=== PATIENT | male | born 1945 | race Caucasian/White ===

== ENCOUNTER → 2017-03-15 | Day surgery (SDC) | payer OTHER ==
[~2017-03-15] VITALS: Ht 182.9 cm; Wt 88.5 kg
[~2017-03-15] MED LIST: ASPIRIN EC81 M1 PO; ATENOLOL25 MG PO; ATORVASTATIN CA40 M1 PO; ATORVASTATIN CA40 MG PO; FUROSEMIDE20 MG PO; LISINOPRIL10 M1 PO; LIVALO4 MG PO; NEXIUM40 M1 PO; PERCOCET 325 MG1 TA3 PO
--- NOTE | 2017-03-15 18:06 | Cons- Urology ---
General Information and HPI Consulting Request Date of Consult: 03/15/17 Requested By: ANNI ZHAO,HAYLIE Leo Reason for Consult: Post op urinary retention Source of Information: patient, old records Exam Limitations: no limitations History of Present Illness: This patient underwent hernia repair today. He has been unable to void since the procedure and feels that his bladder is full. He denies any pre op voiding issues other than an episode of urinary retention after a previous surgical procedure Allergies/Medications Allergies: Coded Allergies: MDX - PCN (penicillin) (PCN (PENICILLIN)) (SWELLING 02/02/14) Home Med List: Aspirin (Ecotrin*) 81 MG TABLET.DR 1 TAB PO DAILY PROPHO (Reported) Atenolol 25 MG TABLET 1 TAB PO DAILY BP (Reported) Atorvastatin Calcium (Lipitor) 40 MG TABLET 1 TAB PO QPM CHOLESTEROL ( Reported) Atorvastatin Calcium 40 MG TABLET 1 TAB PO DAILY CHOLESTEROL (Reported) Esomeprazole (Nexium) 40 MG CAPSULE.DR 1 TAB PO 3X PER WEEK GERD (Reported) Lisinopril 10 MG TABLET 1 TAB PO DAILY HTN (Reported) Past History Medical History Neurological: NONE EENT: NONE Cardiovascular: hypertension, hyperlipidemia Respiratory: NONE Gastrointestinal: diverticulitis, HERNIA REPAIR AND MESH PLACEMENT. SECTION SIGMOID COLON REM Hepatic: cirrhosis Renal: NONE Musculoskeletal: R HIP REPAIR. Endocrine: NONE Blood Disorders: NONE Cancer(s): NONE Family History Relations & Conditions If Any: Relation not specified for: FH: breast cancer FH: lung cancer Psychosocial History Services at Home: None Exam & Diagnostic Data Vital Signs and I&O Intake & Output 03/15 1600 03/15 0800 03/15 0000 03/14 1600 03/14 0800 03/14 0000 Intake Total Output Total Balance Patient 195 lb Weight Back: No CVA tenderness Abd: soft, suprapubic fullness Genitalia: Normal male Procedure: 16 fr coude catheter placed and large volume of urine obtained Assessment/Plan Assessment/Plan Imp: 1. Post op urinary retention Plan: 1. Home with wu 2. Script for flomax 3. Office f/u next week for voiding trial. Instructions given to patient and Consult Acknowledgment - Thank you for your consult request.
--- NOTE | 2017-03-15 19:09 | Operative Report ---
Operative/Inv Procedure Report Surgery Date: 03/15/17 Name of Procedure: Preperitoneal laparoscopic mesh repair of right inguinal hernia, increased work of difficulty Pre-Operative Diagnosis: Right inguinal hernia Post-Operative Diagnosis: same Estimated Blood Loss: less than 50ml Surgeon/Computer Technical Specialist: ANNI ZHAO,HAYLIE BENDER Anesthesia: general endotracheal tube Operative/Procedure Note Note: This procedure went laparoscopically as usual except for some important points # 1 he had a prior laparotomy that scar incision followed around the right side of the umbilicus and continued to the pubis, and then he also had a ventral incisional hernia repair with mesh and that mesh was right there at the curve of the incision around the right side of the umbilicus. This is the spot where we normally make an incision to access the preperitoneal space for right-sided inguinal hernia. So that incision that we make had to reach laterally beyond the scar and the mesh, which then means you have to go through the rectus muscle and precariously closer to the epigastric vessels. Secondly the patient has a history of cirrhosis I'd say overall the vessels in his abdominal wall were more prominent and the subcutaneous fat layer in this area was also relatively increased. Patient was positioned supine on the table. After successful induction of general anesthesia the inguinal and surrounding areas were clipped prepped and draped in the usual sterile fashion. After injection of local anesthetic at the curving portion of the prior laparotomy, an elliptical incision within this attenuated scar was planned little over centimeter long, and then the incision was made with a 15 blade, then deepened deliberately laterally using S retractors beyond the scar and what turned out to be the mesh medially. Eventually we were able to find rectus fascia deep to significant amount of scar , a horizontal 1-1/2 cm incision was made in this thickened fascia between the fibers, elevating these edges with 0 Vicryl stay sutures, because of the distortion and difficult anatomy we had to use 2 sets of 0 Vicryl stay sutures. Then as mentioned, having exposed the underlying rectus muscle, we had to go through it bluntly with S retractors to find the posterior sheath in the retrorectus space. We tried to develop this space as usual first with the S retractor then a peanut dissector followed by the balloon we had to try a few times eventually I feel we got the balloon in the right space but when I inflated it with the hand pump it was oriented vertically so I stopped after a few pumps withdrew it and noticed some bleeding, I felt we had to establish this space still laparoscopically because I was concerned that the bleeding was possibly from the epigastrics which would be very difficult to reach otherwise. So this was part of the increased work and difficulty eventually we were able to get the port in and get the space inflated with the CO2 gas. This space was not opened as usual yet. The TROCAR PORT WAS secured with the stay sutures, gas turned on to 12 not 15 mm. Then two 5 mm trochars are inserted in the midline just below the camera, spaced by approximately 3 cm. Before dissecting out the inguinal anatomy prefers surgical for the bleeder there was a small branch of the epigastrics that we clipped both from the proximal and distal ends in this area but the epigastric vessels were branched and crossing the midline as suspected. After this we could proceed with the original plan. Using mostly blunt dissection with peanuts to define the anatomy, first Joey's ligament is swept off medially, checking the medial spaces, direct and femoral. There were no hernias there. Then briefly skipping over the area of the iliac fat pad, we developed the iliopubic tract out laterally to the iliac crest. Then we returned to the area of the fat pad where the hernia sac and the cord structures are adherent, coursing up into an attenuated deep ring. The cord structures form a triangle with the vas approaching medially and the main vessels approaching laterally, with the apex at the deep ring. There was some preperitoneal fat up inside in front that was dragged down and out, helping identify the distal lip of the hernia sac, which is then carefully peeled off the cord structures, especially the vas. The cord is also from the underlying iliac fat. Once the hernia sac is from the cord structures down to the base of this "triangle," a Parietex sided mesh with the suture, is marked and stuffed down the camera trocar, then unfurled in a systematic fashion , first with the smaller leaflet passing behind the cord structures, until the flap covers the epigastrics, covering the deep ring, then the larger leaflet is released from the suture, double-covering the smaller one, but also extends laterally out to the iliac crest, medially over Joey's ligament, and superiorly towards the camera. There is a third part of the mesh, that covers the iliac fat pad like a skirt. The mesh was adjusted back and forth so that the keyhole is centered around the cord, lays flat and the edges are not curling. A trial run of letting the gas escape a little bit to see how the mesh would lay as the peritoneum comes back down is done, we had to do it 2 times because the bladder was a little distended, then when we're satisfied, we let rest of the gas escape, pulling out the instruments and trochars. The fascia is closed with a [id number] 0 Vicryl suture, tying the stay sutures on top. Then we closed the 3 skin incisions with interrupted 4-0 Monocryl, 3 for the umbilical, one each for the smaller ones, followed by Mastisol, Steri-Strips and Band-Aids. Overall estimated blood loss was minimal, lap and sponge counts were correct, wound expectancy was clean, IV fluids crystalloid, complications none, patient tolerated the procedure well, did not significantly hassan during extubation and was returned to the recovery room in satisfactory condition.
== END ==
LOC: STS 01:36
DX: K40.90 Unilateral inguinal hernia, without obstruction or gangrene, not specified as recurrent (principal); L90.5 Scar conditions and fibrosis of skin; L91.0 Hypertrophic scar; K74.60 Unspecified cirrhosis of liver; I10 Essential (primary) hypertension; E78.00 Pure hypercholesterolemia, unspecified; Z87.891 Personal history of nicotine dependence; Z79.82 Long term (current) use of aspirin
CPT/HCPCS: 93005; 93010; C1781; J2250

== ENCOUNTER 2018-07-07 21:14 | Emergency (ER) | payer SELFPAY ==
[~2018-07-07] VITALS: Ht 182.9 cm; Wt 87.1 kg
[2018-07-07 21:31] VITALS: BP 122/60
--- NOTE | 2018-07-07 22:03 | ED GENERAL ADULT ---
History of Present Illness General Chief Complaint: ETOH/Drug Related Complaint Stated Complaint: BIBA, +ETOH Source: patient, family, EMS, police Exam Limitations: no limitations Vital Signs & Intake/Output Vital Signs & Intake/Output Vital Signs Date Time Temp Pulse Resp B/P B/P Pulse O2 O2 Flow FiO2 Mean Ox Delivery Rate 07/07 2131 96.9 79 20 122/60 94 Room Air ED Intake and Output 07/08 0000 07/07 1200 Intake Total Output Total Balance Patient 192 lb Weight Weight Reported by Patient Measurement Method Allergies Coded Allergies: MDX - PCN (penicillin) (PCN (PENICILLIN)) (SWELLING 02/02/14) Reconcile Medications Aspirin (Ecotrin*) 81 MG TABLET.DR 1 TAB PO DAILY PROPHO (Reported) Atenolol 25 MG TABLET 1 TAB PO DAILY BP (Reported) Atorvastatin Calcium (Lipitor) 40 MG TABLET 1 TAB PO QPM CHOLESTEROL ( Reported) Atorvastatin Calcium 40 MG TABLET 1 TAB PO DAILY CHOLESTEROL (Reported) Esomeprazole (Nexium) 40 MG CAPSULE.DR 1 TAB PO 3X PER WEEK GERD (Reported) Lisinopril 10 MG TABLET 1 TAB PO DAILY HTN (Reported) Triage Note: rayne - was laying on sidewalk across the street from the bar. admits to drinking "lots of merlot" denies si/hi, does not want detox. per EMS pt's son is on the way to grain picker pt. pt calm/cooperative, awake/alert easy wob. Triage Nurses Notes Reviewed? yes HPI: 73-year-old man brought in by police after being found on the ground in front of a bar. Patient reports that he had "too much to drink" tonight and does not recall the events of passing out. He does not feel that he sustained any injuries or hit his head. The fall was unwitnessed and he was down for an unknown amount of time. Please found the patient on the ground and brought him to the [facility]. He is breathalyzed and found to be at 0.269. Presently he is awake and alert and oriented to person, place, and time. He is refusing all evaluation and blood work. He is requesting to go home. His is present at bedside. (Batsheva ZHAO,Arnoldo) Past History Travel History Traveled to [place] past 21 day No Medical History Any Pertinent Medical History? see below for history Neurological: NONE EENT: NONE Cardiovascular: hypertension, hyperlipidemia Respiratory: NONE Gastrointestinal: diverticulitis, HERNIA REPAIR AND MESH PLACEMENT. SECTION SIGMOID COLON REM Hepatic: cirrhosis Renal: NONE Musculoskeletal: R HIP REPAIR. Endocrine: NONE Blood Disorders: NONE Cancer(s): NONE History of MRSA: No History of VRE: No History of CDIFF: No Surgical History Surgical History: non-contributory Psychosocial History Who do you live with Spouse Services at Home None What is your primary language Bulgarian Tobacco Use: Quit >30 days ago ETOH Use: heavy use Family History Family History, If Any: Relation not specified for: FH: breast cancer FH: lung cancer Hx Contributory? No (Arnoldo Herman MD) Review of Systems Review of Systems Constitutional: Reports: see HPI. (Arnoldo Herman MD) Physical Exam Physical Exam General Appearance: well developed/nourished, no apparent distress, alert, awake , anxious, comfortable Comments: General -thin elderly man in no acute distress HEENT - NCAT, PERRL, EOMI, anicteric sclera Neck- Supple, no JVD/HJR, no bruits, trachea midline, thyroid normal, no crepitus or step-offs Cardio - S1, S2 w/o murmurs/gallops/rubs; regular rate and rhythm Resp - Clear to auscultation bilaterally GI - Soft, nontender, nondistended, bowel sounds present Neuro - Awake and alert, oriented to person/place/time, CN II - XII grossly intact, speech/sensation/coordination intact, speech fluent, face symmetric, strength 5/54, gait intact Extremities - No edema, pulses intact Core Measures ACS in differential dx? No CVA/TIA Diagnosis: No Sepsis Present: No Sepsis Focused Exam Completed? No (Arnoldo Herman MD) Progress Differential Diagnoses I considered the following diagnoses in my evaluation of the patient: Mechanical fall, intoxication, syncope Plan of Care: Patient denied all care Initial ED EKG: none Comments: 73-year-old man brought in by police after being found on the ground in front of a bar. Breathalyzer was found to be elevated to 0.269. Patient reports not eating dinner this evening and "drinking too much". Vital signs remain within normal limits with physical examination demonstrating a normal cardiopulmonary examination and a complete neurologic examination showing no focal deficits. Labs and CT imaging were not obtained. EKG was denied. Patient was extensively counseled regarding the risks of leaving without evaluation and reiterated understanding. Patient was counseled regarding the risks of falling which include potentially or significant disability. Patient is accompanied by his who will drive the patient home. Patient has capacity to make these decisions and was instructed to return to the ED should he change his mind or develop any new symptoms. (Arnoldo Herman MD) Departure Departure Disposition: HOME OR SELF CARE Condition: Stable Clinical Impression Primary Impression: Intoxication Referrals: Julio Dhaliwal MD (PCP/Family) Additional Instructions: Avoid drinking excessively. Do not drink and drive. Call 911 or return to the ED should you develop any new symptoms or request alcohol detox. Follow up with your primary care provider. Departure Forms: Customer Survey General Discharge Information (Arnoldo Herman MD) Resident Co-Sign Statement Statement: ED Attending supervision documentation- [X] I saw and evaluated the patient. I have also reviewed all the pertinent lab results and diagnostic results. I agree with the findings and the plan of care as documented in the Resident's documentation. [] I have reviewed the ED Record and agree with the Resident's documentation. [] Additions or exceptions (if any) to the Resident's note and plan are summarized below: [] (Jaziel Cummins DO) Critical Care Note Critical Care Note Critical Care Time: non-applicable (Arnoldo Herman MD)
== END 2018-07-07 22:10 ==
LOC: ERH 21:14
DX: F10.129 Alcohol abuse with intoxication, unspecified (principal)